=== PATIENT | female | born 1980 | race Caucasian/White ===

== ENCOUNTER → 2020-04-21 | Outpatient (CLI) | payer OTHER ==
[~2020-04-21] MED LIST: BUPR150T6 PO; FAMO20TA5 PO; FLUO40CA2 PO; HYOS0.1279 PO; LORA2ORA7 PO; ONDA4TAB12 PO; TRAZ-118 PO
[2020-04-21 12:12] LABS: BASO % 1 % (0-3); EOS % 0 % (0-3); HEMATOCRIT 39.3 % (36.0-47.0); HEMOGLOBIN 13.7 g/dL (12.0-15.5); LYMPH # 2.3 x10^3/uL (1.0-4.8); LYMPH % 27 % (24-48); MEAN CORPUSCULAR HEMOGLOBIN 32 pg (25-35); MEAN CORPUSCULAR HGB CONC 35 g/dL (31-37); MEAN CORPUSCULAR VOLUME 91 fL (79-100); MONO # 0.5 x10^3/uL (0.0-1.1); MONO % 6 % (0-9); NEUT # 5.8 x10^3/uL (1.8-7.7); NEUT % 67 % (31-73); PLATELET COUNT 371 x10^3/uL (140-400); RED CELL DISTRIBUTION WIDTH 13.6 % (11.5-14.5); WHITE BLOOD COUNT 8.7 x10^3/uL (4.0-11.0)
[2020-04-21 12:43] LABS: ALBUMIN 3.7 g/dL (3.4-5.0); ALBUMIN/GLOBULIN RATIO 1.1 (1.0-1.7); CALCIUM 8.9 mg/dL (8.5-10.1); CREATININE 0.9 mg/dL (0.6-1.0); TOTAL BILIRUBIN 0.4 mg/dL (0.2-1.0); TOTAL PROTEIN 7.2 g/dL (6.4-8.2)
--- NOTE | 2020-04-21 13:33 | EKG ---
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
--- NOTE | 2020-04-21 14:02 | RAD ---
Examination: XR CHEST 2V History: Reason: PRE OP. PARTIAL HYSTERECTOMY ON 04/26/2020 / [facility]. Instructions: / History: Comparison/Correlation: None Findings: Frontal and lateral views of the chest were obtained. Heart size and pulmonary vasculature are normal. No infiltrate or effusion. No pneumothorax. Bony structures are unremarkable. Impression: No active disease. Electronically signed by: Coy Sullivan MD (04/21/2020 2:00 PM) [id number]
== END ==
LOC: SURGPAT 11:28
PROVIDERS: ATTEND Obstetrics & Gynecology
DX: Z01.818 Encounter for other preprocedural examination (principal); Z72.0 Tobacco use
CPT/HCPCS: 36415; 71046; 80053; 85025; 93005

== ENCOUNTER 2020-04-26 06:10 | Observation (INO) | payer OTHER ==
[2020-04-26] VITALS (11 sets, daily range): BP systolic 107–133; BP diastolic 37–66
[~2020-04-26] VITALS: Ht 165.1 cm; Wt 64.5 kg
[~2020-04-26 06:10] MED LIST changes: +BUPIVACAINE-EPI 0.25%-1:200000 MPF 30 ML VIAL. INJ ONE
[2020-04-26] MEDS ORDERED: SCOPOLAMINE 1.5MG PATCH. TD ONE (06:30)
[2020-04-26] MEDS ORDERED: LIDOCAINE 2% PF 5 ML VIAL. ONE (06:49)
[2020-04-26] MEDS ORDERED: ROCURONIUM 50 MG/5 ML VIAL. ONE (06:49)
[2020-04-26] MEDS ORDERED: PROPOFOL 10 MG/ML (20ML) VIAL. IV ONE (06:49)
[2020-04-26] MEDS ORDERED: ESTROGENS, CONJ VAGINAL CREAM 30GM TUBE. ONE (06:59)
[2020-04-26] MEDS ORDERED: HYDROmorphone 2 MG/ML VIAL IV PRN (07:00)
[2020-04-26] MEDS ORDERED: INDIGOTINDISULFONATE SODIUM 40 MG/5 ML AMPUL. ONE (07:00)
[2020-04-26] MEDS ORDERED: MORPHINE SULFATE 2 MG/ML VIAL. IV PRN ×2 (07:00→10:00)
[2020-04-26] MEDS ORDERED: PROCHLORPERAZINE 10 MG/2 ML VIAL. IV PRN (07:00)
[2020-04-26] MEDS ORDERED: IV RINGERS,LACTATED 1000ML 1,000 ML IV SCH (07:00)
[2020-04-26] MEDS ORDERED: ONDANSETRON PF 4 MG/2 ML VIAL. IV PRN ×2 (07:00→10:00)
[2020-04-26] MEDS ORDERED: LIDOCAINE 1% PF 2 ML VIAL. ID PRN (07:00)
[2020-04-26] MEDS ORDERED: fentaNYL PF VIAL 100 MCG/2 ML VIAL IV PRN ×2 (07:00)
[2020-04-26] MEDS ORDERED: MIDAZOLAM HCL/PF 2 MG/2 ML VIAL. ONE (07:25)
[2020-04-26] MEDS ORDERED: SEVOFLURANE > 120 MINUTES. IH ONE (08:09)
[2020-04-26] MEDS ORDERED: ONDANSETRON PF 4 MG/2 ML VIAL. ONE (08:10)
[2020-04-26] MEDS ORDERED: DEXAMETHASONE SOD PHOS 4 MG/ML VIAL ONE (08:10)
[2020-04-26] MEDS ORDERED: KETOROLAC 30 MG/ML VIAL. ONE (08:10)
[2020-04-26] MEDS ORDERED: HYDROmorphone 2 MG/ML VIAL ONE (08:18)
[2020-04-26] MEDS ORDERED: GLYCOPYRROLATE 1 MG/5 ML VIAL. ONE (09:15)
[2020-04-26] MEDS ORDERED: NEOSTIGMINE METHYLSULFATE 5 MG/5 ML SYRINGE. ONE (09:15)
--- NOTE | 2020-04-26 09:47 | PDOC ---
BRIEF OPERATIVE NOTE Date: Apr 26, 2020 Pre-Op Diagnosis menorrhagia, dysmenorrhea, pelvic pain Post-Op Diagnosis same Procedure Performed LAVH/LSO/right salpingectomy Surgeon Dr. Lary Shoemaker Bin Worker Emerson MCDONNELL Anesthesiologist Dr. Lambert Anesthesia Type: General Blood Loss 25cc IV Fluid 1200cc Urine Output 150cc clear via walker Specimens Obtained cervix, uterus, left tube and ovary, right tube Findings RV uterus, tubes with clips, mild left sided adhesions; normal ovaries b ilaterally Complications none Operative Note [id number] LARY SHOEMAKER MD Apr 26, 2020 09:46
[2020-04-26] MEDS ORDERED: fentaNYL PF VIAL 100 MCG/2 ML VIAL ONE (09:51)
[2020-04-26] MEDS ORDERED: CALCIUM CARBONATE 500 MG TAB.CHEW PO PRN (10:00)
[2020-04-26] MEDS ORDERED: diphenhydrAMINE HCL 25 MG CAPSULE PO PRN (10:00)
[2020-04-26] MEDS ORDERED: NALOXONE 0.4 MG/ML VIAL. IV PRN (10:00)
[2020-04-26] MEDS ORDERED: ZOLPIDEM 5 MG TABLET. PO PRN (10:00)
[2020-04-26] MEDS ORDERED: HYDROcodone/APAP 5/325MG 1 TAB TABLET PO PRN (10:00)
[2020-04-26] MEDS ORDERED: LACTULOSE 20 GM/30 ML SOLUTION. PO PRN (10:00)
[2020-04-26] MEDS ORDERED: diphenhydrAMINE 50 MG/ML VIAL IV PRN (10:00)
[2020-04-26] MEDS ORDERED: 0.9 % SODIUM CHLORIDE 10 ML DISP.SYRIN. IV PRN (10:00)
[2020-04-26] MEDS ORDERED: MAG HYDROX/ALUMINUM HYD/SIMETH 30 ML ORAL.SUSP PO PRN (10:00)
[2020-04-26] MEDS ORDERED: MAGNESIUM HYDROXIDE 2,400 MG/30 ML ORAL.SUSP. PO PRN (10:00)
[2020-04-26] MEDS ORDERED: SIMETHICONE 80 MG TAB.CHEW PO PRN (10:00)
--- NOTE | 2020-04-26 11:23 | OP ---
DATE OF SURGERY: 04/26/2020 PREOPERATIVE DIAGNOSES: Menorrhagia, dysmenorrhea, pelvic pain; especially left-sided. POSTOPERATIVE DIAGNOSES: Menorrhagia, dysmenorrhea, pelvic pain; especially left-sided. PROCEDURES: Laparoscopic-assisted vaginal hysterectomy, left salpingo-oophorectomy, right salpingectomy. SURGEON: Carol Shoemaker MD DATA RECOVERY PLANNER: OR personnel. assistant director of public works was I believe his name is KECIA Norman; he is a traveling FA. ANESTHESIOLOGIST: Zeeshan Lambert MD ANESTHESIA: General. URINE OUTPUT: 150 mL, clear via Wilson catheter. BLOOD LOSS: 25 mL. INTRAVENOUS FLUIDS: 1200 mL of Crystalloid. SPECIMENS: Cervix, uterus, left tube and ovary, right tube. FINDINGS: Grossly normal abdomen; she did have some mild left-sided bowel adhesions, normal right upper quadrant, appendix was gone, retroverted uterus, tubes with evidence of clips from prior tubal ligation, normal bilateral ovaries. COMPLICATIONS: None. DESCRIPTION OF PROCEDURE: This patient was taken to the operating room where general anesthesia was placed. The patient was placed in dorsal lithotomy position in [facility]. The patient's abdomen and vagina were both prepped and draped in the normal sterile fashion and a Wilson catheter had been inserted under sterile technique. Upon my arrival, a timeout was performed. Once everyone agreed on the patient, the site, the procedure, the antibiotics, the procedure was initiated. A bivalve speculum was placed in the patient's vagina. A single-tooth tenaculum was used to grasp the anterior lip of the cervix. A 10 mL of 0.25% Marcaine with epinephrine was used to circumferentially inject around the cervix for both hemodissection and hemostatic purposes later. The Valtchev uterine manipulator was placed through the endocervical os, locked on the single-tooth tenaculum and the bivalve speculum was then removed. Top gloves were discarded and changed. Attention was turned to the abdomen where a small infraumbilical skin incision was made over the existing scar. A curved Chelsi was used to dissect through the subcuticular layer to the fascia. The 5-mm Visiport was used directly into the abdominal cavity. Opening patient pressure was 2-3 mmHg. Carbon dioxide gas was used to appropriately insufflate the abdominal cavity to maintain a pressure of 15 mmHg. The patient was placed in Trendelenburg position. Right and left lower quadrant ports were placed after transilluminating the abdominal wall, finding an area clear of any vasculature and placing the 5-mm disposable trocar under direct visualization. A 4-5 mL of air replaced in the trocar cuff. The camera was moved laterally to look at the umbilical port. Once it was assured to be in and clear, it was also insufflated the trocar cuff. The left tube and ovary were elevated, finding the ureter, coursing low in the pelvis, staying high on the infundibulopelvic ligament, taking the left tube and ovary per the patient request, cauterizing and cutting with the LigaSure, going over, going through the left round ligament as well and then down anteriorly just a little bit to start the bladder flap. On the right side, the right tube and ovary were elevated. Again, both tubes had evidence of Filshie clips that appeared. The right tube and ovary were elevated. Again, the ureter was seen coursing in the mid-to-low pelvis, but she wished to retain this ovary as it looked normal, so going above the ovary, below the tube, cauterizing and cutting, doing a salpingectomy, then crossing the right uterine-ovarian pedicle and the right round ligament, cauterizing and cutting with the LigaSure each way. Once this was done, the uterus was pushed cephalad. The Maryland was used to elevate the bladder flap and the monopolar hook was used to cauterize across the bladder flap and it was easily peeled down gently with the Maryland. Once this was done, going back to the left side, getting the uterines and staying inside that pedicle through the cardinal and broad ligaments, cauterizing and cutting with the LigaSure down to the level of the uterosacral. Posteriorly, everything was completely clear and free, so the right side once the right round ligament was obtained getting the right uterine vessels as well and then staying inside that pedicle hugging and going posteriorly through the cardinal and broad ligaments down to the uterosacral on this side as well. The uterus was completely free and blanched, we were low, there was no bleeding whatsoever. So, everything was removed from the abdomen and attention was turned vaginally. The overhead lights were turned on. The patient was taken out of steep Trendelenburg. The single tooth and Valtchev were removed. A weighted speculum was placed in the patient's vagina. Thyroid Umm clamps were placed on the anterior and posterior lips of the cervix respectively. A scalpel was used to make a circumferential incision in the cervix. The posterior cul-de-sac was sharply entered with curved Padilla scissors. A #0 Vicryl stitch was used to secure the posterior peritoneum here to the vaginal cuff, tagged with a curved Chelsi clamp. Needle was cut and passed off. Short-weighted speculum was removed and replaced with the long-weighted Nanda speculum in the posterior cul-de-sac. The bladder flap anteriorly was created sharply by gently just pushing it up and using the scalpel to peel it off the cervix and then using the open Ray-Ray 4 x 4 to gently push it up and the anterior cul-de-sac was easily digitally and bluntly entered. The curved Shandra was placed in here and the Ray-Ray was then passed off to the bottom table. Curved Elva clamps x 2 were placed on the patient's left uterosacral ligament where they were doubly clamped with curved Heaneys, cut with curved Padilla scissors and suture ligated x 2 with 0 Vicryl. Second one was taken through the vaginal cuff securing uterosacral ligament to the vaginal cuff and tagging it with a straight Chelsi clamp and cutting and passing the needle off. This was done exactly the same that I started on left on the right side. Double clamp in the uterosacrals with curved Elva's, cutting with curved Padilla scissors, suture ligating x 2 with 0 Vicryl, taking the second one through the vaginal cuff securing uterosacral ligament to the vaginal cuff, tagging it with a straight Chelsi clamp and cutting the needle off. The patient's right side was completely free and wanted to come out. There was a very small thread of peritoneum holding in the uterus on the left, but the right angle clamp was placed around that. The vaginal LigaSure was used to cauterize and cut this. The cervix, uterus, left tube and ovary, right tube were delivered in total and passed off for permanent pathology. A sponge stick was used to examine all the pedicles. The anterior bladder peritoneum was grasped with a long Allis. The long speculum Nanda was removed from the posterior cul-de-sac and replaced with the short-weighted vaginal speculum in the vagina. A 2-0 Vicryl was taken through the anterior bladder peritoneum, left uterosacral ligament, posterior peritoneum and right uterosacral ligament, thus closing the peritoneum in a pursestring-like fashion. The right and left uterosacral tags were clipped. A full length 2-0 Vicryl was used to close the cuff in an [id number]-st-ifforogrd running locked fashion, locking the sutures. About three-quarters of the way down, the needle was then pulled off. I got another one, put as the suture in right above it, tied it, and then kept going down and tied to the posterior cuff tag. The vaginal cuff looked excellent; that was completely hemostatic, no bleeding. So, all instruments were counted x 2 below by OR personnel and were correct. So, all gloves were discarded and changed and attention was turned back above for a second look. The patient was placed back in Trendelenburg. Overhead lights were redimmed. Gas was reinsufflated. Copious irrigation revealed hemostasis. There was some very mild, maybe a tiny bit of oozing at the right side on the cuff. This was cauterized right on the cuff edge, underneath on the right side with the LigaSure. Copious irrigation then did reveal hemostasis plus Tisseel was placed over all the cuff with excellent results. The right and left lower quadrant ports were deflated, the cuffs were and removed under direct visualization. They were hemostatic. The cuff remained hemostatic with absolutely nothing in the cul-de-sac. Gas was taken out of the trocar cuff of the umbilical port and the gas was released from the abdomen through this. Once it was out, it was removed. All 3 port sites were closed. There was some slight bleeding from the left trocar site, so a Monocryl was placed below it to stop the bleeding, which worked great and then nylon was used on all three. Then, they were injected with local at the end of closing all three with nylon. Again, all sponge, lap and needle counts were correct x 2 by the OR personnel. The patient was awakened from anesthesia and brought to recovery room in stable condition. CAROL SHOEMAKER MD DR: NANDO/yazan JOB#: [id number] / [id number]
[2020-04-26] MEDS: oxyCODONE/APAP 5/325 1 TAB TABLET PO PRN ×2 (13:37→22:06)
[2020-04-26] MEDS ORDERED: LORazepam 0.5 MG TABLET PO ONE (21:00)
[2020-04-26] MEDS ORDERED: FLUoxetine HCL 20 MG CAPSULE PO SCH (21:00)
[2020-04-27 02:15] VITALS: BP 124/78
[2020-04-27 05:46] VITALS: BP 121/68
--- NOTE | 2020-04-27 08:55 | PDOC ---
SURGICAL PROGRESS NOTE DATE: 04/27/20 TIME: 08:51 Subjective Doing well without complaints. Voiding without catheter, tolerating regular diet without n/v' ambulating well and scant VB Vital Signs Vital Signs Date Time Temp Pulse Resp B/P (MAP) Pulse Ox O2 Delivery O2 Flow Rate FiO2 04/27/20 05:46 98.6 60 18 121/68 (85) 97 Room Air 98.6 04/26/20 10:10 6 I&O Intake and Output 04/27/20 07:00 Intake Total 1350 ml Output Total 550 ml Balance 800 ml Intake IV Total 1350 ml Output Urine Total 525 ml Estimated Blood Loss 25 ml # Voids 2 PATIENT HAS A BATES: No General: Alert, Oriented X3, Cooperative, No acute distress HEENT: Atraumatic Heart: Regular rate Abdomen: Soft, Other (appropriate tenderness. all port sites c/d/i) Extremities: No clubbing, No cyanosis, No edema, No tenderness/swelling Skin: No rashes, No breakdown Neuro: Normal speech Psych/Mental Status: Mental status NL, Mood NL Labs Laboratory Tests Test 04/26/20 06:29 Bedside Urine HCG, Qualitative Hcg negative (Negative) I have reviewed the following labs, vitals, nursing Assessment/Plan POD#1 s/p LAVH/LSO/right salpingectomy Routine PO care d/c to home later today if labs ok (not drawn yet this am) NPV x 6 weeks light/limited x 2 weeks keep one week follow up with me as scheduled\ already has pain pills filled at home ok for OTC ibuprofen as needed also Call or return sooner for any other questions or concerns not limited to but including pain unrelieved with pain meds, increased or unexplained vaginal bleeding or T.100.4 Justicifation of Admission Dx: Justifications for Admission: Justification of Admission Dx: Yes (postoperative) CAROL ESTRADA MD Apr 27, 2020 08:55
--- NOTE | 2020-04-27 08:58 | PDOC3 ---
Discharge Summary Visit Information Date of Admission: Apr 26, 2020 Date of Discharge: Apr 27, 2020 Admitting Diagnosis Comment: pelvic pain, menorrhagia Brief Hospital Course Allergies Allergies Coded Allergies Type Severity Reaction Last Updated Verified Influenza Virus Vaccines Allergy Mild 04/27/20 Yes codeine Allergy Mild Nausea and Vomiting 04/27/20 Yes dicyclomine Allergy Mild 04/27/20 Yes Vital Signs Vital Signs Date Time Temp Pulse Resp B/P (MAP) Pulse Ox O2 Delivery O2 Flow Rate FiO2 04/27/20 05:46 98.6 60 18 121/68 (85) 97 Room Air 98.6 04/26/20 10:10 6 Lab Results Laboratory Tests Test 04/26/20 06:29 Bedside Urine HCG, Qualitative Hcg negative (Negative) Brief Hospital Course Ms. Jacobo is a 40 old female who presented with left sided pelvic pain, menorrhagia and dysmenorrhea. She underwent an LAVH/LSO/ right salpingectomy yesterday without complications. She has had an unremarkable postoperative course. She is AFVSS, ambulating well, voiding without catheter, tolerating regular diet without n/v and scant VB. She desires to go home, just awaiting am labs Assessment Assessment POD#1 s/p LAVH/LSO/right salpingectomy Routine PO care d/c to home later today if labs ok (not drawn yet this am) NPV x 6 weeks light/limited x 2 weeks keep one week follow up with me as scheduled\ already has pain pills filled at home ok for OTC ibuprofen as needed also Call or return sooner for any other questions or concerns not limited to but including pain unrelieved with pain meds, increased or unexplained vaginal bleeding or T.100.4 Discharge Information Condition at Discharge: Stable Follow Up: Weeks Disposition/Orders: D/C to Home Scheduled Bupropion Hcl (Bupropion Xl) 150 Mg Tab.er.24h, 1 TAB PO DAILYWBKFT for depression, #30 Ref 2 (Reported) Entered as Reported by: ITZEL LOPEZ on 04/21/20 121 Last Taken: Unknown Dose on 04/26/20514 Last Action: Last Taken Edited on 04/26/20627 by BERTHA CORREA Famotidine (Famotidine) 20 Mg Tablet, 20 MG PO DAILY08 for dyspepsia, (Reported) Entered as Reported by: ITZEL LOPEZ on 04/21/20 121 Last Taken: Unknown Dose on 04/25/20 Last Action: Last Taken Edited on 04/26/20627 by BERTHA CORREA Fluoxetine Hcl (Fluoxetine Hcl) 40 Mg Capsule, 1 CAP PO HS for depression, #30 Ref 2 (Reported) Entered as Reported by: ITZEL LOPEZ on 04/21/201208 Last Taken: Unknown Dose on 04/25/20 Last Action: Last Taken Edited on 04/26/20627 by BERTHA CORREA Trazodone Hcl (Trazodone Hcl) 50 Mg Tablet, 1 TAB PO QHS for insomnia, #30 Ref 1 (Reported) Entered as Reported by: ITZEL LOPEZ on 04/21/201206 Last Taken: Unknown Dose on 04/25/20 Last Action: Last Taken Edited on 04/26/20627 by BERTHA CORREA Scheduled PRN Hyoscyamine Sulfate (Hyoscyamine Sulfate) 0.125 Mg Tablet, 1 TAB PO PRN QID PRN for DYSPEPSIA for 30 Days, Ref 0 (Reported) Entered as Reported by: ITZEL LOPEZ on 04/21/201208 Last Taken: Unknown Dose on 04/25/20 Last Action: Last Taken Edited on 04/26/20627 by BERTHA CORREA Lorazepam (Lorazepam Intensol ) 2 Mg/1 Ml Oral.conc, 1 MG PO BID PRN for ANXIETY / AGITATION, (Reported) Entered as Reported by: ITZEL LOPEZ on 04/21/201207 Last Taken: Unknown Dose on 04/26/20 0515 Last Action: Last Taken Edited on 04/26/20627 by BERTHA CORREA Ondansetron (Ondansetron Odt) 4 Mg Tab.rapdis, 8 MG PO BID PRN for NAUSEA/VOMITING, (Reported) Entered as Reported by: ITZEL LOPEZ on 04/21/201209 Last Taken: Unknown Dose on 04/25/20 Last Action: Last Taken Edited on 04/26/20627 by BERTHA CORREA Patient Instructions Patient Instructions POD#1 s/p LAVH/LSO/right salpingectomy Routine PO care d/c to home later today if labs ok (not drawn yet this am) NPV x 6 weeks light/limited x 2 weeks keep one week follow up with me as scheduled\ already has pain pills filled at home ok for OTC ibuprofen as needed also Call or return sooner for any other questions or concerns not limited to but including pain unrelieved with pain meds, increased or unexplained vaginal bleeding or T.100.4 Justicifation of Admission Dx: Justifications for Admission: Justification of Admission Dx: Yes (postoperative) CAROL ESTRADA MD Apr 27, 2020 08:58
[2020-04-27] MEDS: oxyCODONE/APAP 5/325 1 TAB TABLET PO PRN (09:14)
[2020-04-27 11:49] LABS: CALCIUM 8.4 mg/dL (8.5-10.1); GFR 61.1; POTASSIUM 3.3 mmol/L (3.5-5.1)
[2020-04-27 13:00] VITALS: BP 112/61
--- NOTE | 2020-04-27 13:06 | NUR ---
Discharge Discharge instructions given to patient and at this time, no questions or concerns. To follow up with DR Shoemaker in 2 weeks. Patient ambulated off unit with all her belongings.
--- NOTE | 2020-05-02 22:19 | PATHOLOGY ---
[facility] Accession Number: [id number] . 01 Material submitted: . uterus - CERVIX, UTERUS, LEFT TUBE AND OVARY, RIGHT TUBE . 01 Clinical history: . MENORRHAGIA . 02 Diagnosis: Uterus with attached bilateral fallopian tubes and left ovary, hysterectomy with bilateral salpingectomy and left oophorectomy: - Chronic cervicitis with focal squamous metaplasia. - Few small nabothian cysts, cervix. - Status post endometrial ablation with small stellate and fibrotic endometrial cavity. - Benign simple serous cyst of myometrium of left cornual region. - Status post bilateral tubal ligation with segmental hydrosalpinx of left fallopian tube. - Small left paratubal cysts. - Small serous cyst and focally hemorrhagic regressing luteum of left ovary. . LBQ 05/02/2020 2103 Local . 02 Comment: There is no atypia or evidence of malignancy. (JPM/db; 04/28/2020) . . This case was prepared and proofread by Dr. Lam Sanches and electronically released by Dr. Andreina Cottrell. . 02 Electronically signed: . Andreina Cottrell MD, Pathologist NPI- [id number] . 01 Gross description: . Received in formalin labeled "Kiet Jacoboa, cervix, uterus, left tube and ovary, right tube" is a previously opened hysterectomy specimen with attached left fallopian tube and ovary and right fallopian tube. The uterus weighs 60 g and measures 7.8 cm from fundus to cervix, 5.0 cm from cornu to cornu, and 3.8 cm from anterior to posterior. The serosa is pink-taylor and smooth. The ectocervix is pink-taylor and glistening with a slitlike cervical os measuring 2.1 cm. The uterus is opened to reveal a 2.6 x 1.2 cm endocervical canal and a 2.0 x 0.6 cm stellate and fibrotic endometrial cavity, possibly consistent with previous ablation procedure. The average endometrial thickness is less than 0.1 cm and the average myometrial thickness is 1.4 cm. A simple cyst is present within the myometrium at the left cornu, measuring 0.8 cm in greatest dimension. The cyst contains clear watery fluid. The right fallopian tube measures 6.5 x 0.8 cm and the left fallopian tube measures 6.7 cm in length and ranges from 0.8-1.5 cm in diameter. The right fallopian tube displays a metallic clamp at the proximal aspect, consistent with sterilization procedure. The left fallopian tube displays two metallic clamps, located in the proximal and mid tube, with the segment of fallopian tube between the clamps being dilated and filled with clear watery fluid. The remaining fallopian tube surfaces are smooth and red-purple, and the fallopian tubes are sectioned to reveal otherwise unremarkable lumens. The left ovary weighs 4 g and measures 2.3 x 1.5 x 1.2 cm. The ovary has a taylor-white cerebriform external surface and is sectioned to reveal taylor-white unremarkable cut surfaces. . Feed Mill Manager sections are submitted as follows A1 12:00 cervix A2 6:00 cervix A3 anterior endomyometrium A4 posterior endomyometrium A5 right fallopian tube A6-A7 left fallopian tube A8 left ovary A9 uterine cyst [place] . After initial microscopic examination, additional novelties sales representative sections are submitted as follows: . A10 anterior endomyometrium A11 posterior endomyometrium. ([facility]; 04/28/2020) [facility] 04/28/2020 1746 Local . 02 Pathologist provided ICD-10: N72, N88.8, N83.202, N83.8 . 02 CPT . 282012 Specimen Comment: A courtesy copy of this report has been sent to [phone], [phone] Specimen Comment: [id number] Specimen Comment: Report sent to / DR WOODS Performed at: [address], [place], [place] [address] MD Hamilton Arevalo MD Phone: [phone] Performed at: 02 [facility] [address] [place], [place] [id number] MD Lam Sanches MD Phone: [phone]
== END 2020-04-27 13:30 | disposition home or self-care (01) ==
LOC: SURG 06:10 → 3 NORTH 09:59 → EDUNIT# 10:30
PROVIDERS: ADMIT Obstetrics & Gynecology; ATTEND Obstetrics & Gynecology
DX: N92.0 Excessive and frequent menstruation with regular cycle (principal); N94.6 Dysmenorrhea, unspecified; R10.2 Pelvic and perineal pain
CPT/HCPCS: 36415; 58552; 80048; 81025; 85014; 86850; 86900; 86901; 88307; 96374; G0378; G0379; J0690; J0780; J1100; J1170; J1885; J2250; J2405; J2704; J2710; J3010; J3490; J7120

== ENCOUNTER 2020-10-07 22:29 | Emergency (ER) | payer BC, OTHER ==
[~2020-10-07] VITALS: Ht 167.6 cm; Wt 64.0 kg
[~2020-10-07 22:29] MED LIST changes: -BUPIVACAINE-EPI 0.25%-1:200000 MPF 30 ML VIAL. INJ ONE; +BUPR150T21 PO; -BUPR150T6 PO
[2020-10-07] MEDS ORDERED: DEXAMETHASONE SOD PHOS 4 MG/ML VIAL IVP ONE (23:45)
[2020-10-08 00:02] LABS: BASO # 0.2 x10^3/uL (0.0-0.2); BASO % 1 % (0-3); EOS # 0.2 x10^3/uL (0.0-0.7); EOS % 1 % (0-3); HEMATOCRIT 41.9 % (36.0-47.0); HEMOGLOBIN 14.1 g/dL (12.0-15.5); LYMPH % 21 % (24-48); MEAN CORPUSCULAR HEMOGLOBIN 31 pg (25-35); MEAN CORPUSCULAR HGB CONC 34 g/dL (31-37); MEAN CORPUSCULAR VOLUME 91 fL (79-100); MONO # 0.9 x10^3/uL (0.0-1.1); MONO % 6 % (0-9); NEUT # 10.5 x10^3/uL (1.8-7.7); NEUT % 71 % (31-73); PLATELET COUNT 420 x10^3/uL (140-400); RED BLOOD COUNT 4.61 x10^6/uL (3.50-5.40); RED CELL DISTRIBUTION WIDTH 13.4 % (11.5-14.5); WHITE BLOOD COUNT 14.7 x10^3/uL (4.0-11.0)
[2020-10-08 00:17] LABS: CALCIUM 9.6 mg/dL (8.5-10.1); CREATININE 0.9 mg/dL (0.6-1.0); POTASSIUM 3.9 mmol/L (3.5-5.1)
--- NOTE | 2020-10-08 00:17 | RAD ---
XR CHEST 1V Clinical History: Reason: cough, covid? / Spl. Instructions: / History: Technique: AP view of the chest was obtained at 10/07/2020 11:43 PM. Comparison: April 21, 2020. Findings: The heart is normal size. The pulmonary vessels appear normal. There is increased reticular opacities of the lungs. There is blunting of costophrenic angles. There is low lung volumes. Impression: Reticular opacities of lungs are nonspecific and can be chronic pulmonary fibrosis but can be atypica l pneumonia. This is somewhat exaggerated by low lung volumes. Clinical correlation is suggested. Electronically signed by: Jacek Bonilla III, MD (10/08/2020 12:15 AM) [facility]
[2020-10-08 00:23] LABS: ALBUMIN 3.8 g/dL (3.4-5.0); TOTAL BILIRUBIN 0.2 mg/dL (0.2-1.0); TOTAL PROTEIN 7.8 g/dL (6.4-8.2)
[2020-10-08] MEDS ORDERED: IPRATRPIUM/ALBUTEROL 0.5/2.5MG 3 ML NEBU. NEB ONE (00:30)
[2020-10-08 00:34] LABS: C-REACTIVE PROTEIN 62.2 mg/L (0-3.3)
--- NOTE | 2020-10-08 01:11 | ED.ADGEN ---
Past Medical History Past Medical History: Anxiety, IBS, Pneumonia Past Surgical History: Appendectomy, Cholecystectomy, Hysterectomy, Tubal lig ation Additional Past Surgical Histo: "SOME ADHESION REMOVAL" Smoking Status: Current Every Day Smoker Alcohol Use: Occasionally General Adult EDM: Chief Complaint: MULTIPLE COMPLAINTS HPI: HPI: Patient is a 40-year-old female presents to the emergency room complaining of cough, chest tightness, shortness of breath for the last several days. Patient states that a week ago she had developed a sore throat and the following day she had chest congestion and a mild cough. She states that initially the first couple of days it progressively got better. She states that then on 2 days prior to arrival she got significantly worse congestion. She states now if she tries to lay flat she has excessive coughing and cannot catch her breath. She no longer has any URI symptoms. She states that she is producing some mucus but states that it is not enough. She states that she cannot get all of the congestion up. She has been taking NyQuil, DayQuil, Mucinex at home without relief. She denies any fevers, chills, sweats, abdominal pain, nausea, vomiting, body aches. She does have some chest pain anytime she coughs but otherwise does not have any chest pain. She states that feels like an achy pain. Review of Systems: Review of Systems: Complete ROS is negative unless otherwise documented in HPI Current Medications: Current Medications Medications (Trade) Dose Ordered Sig/Zack Start Time Stop Time Status Last Admin Dose Admin Albuterol/ Ipratropium (Duoneb) 3 ml 1X ONCE 10/08/20 00:30 10/08/20 00:31 DC 10/08/20 00:59 3 ML Dexamethasone Sodium Phosphate (Decadron) 10 mg 1X ONCE 10/07/20 23:45 10/07/20 23:46 DC 10/08/20 00:16 10 MG Guaifenesin/ Codeine Phosphate (Robitussin Ac) 5 ml PRN 1X PRN 10/08/20 02:15 Ondansetron HCl (Zofran) 4 mg 1X ONCE 10/08/20 02:15 10/08/20 02:16 DC Allergies: Allergies: Allergies Coded Allergies Type Severity Reaction Last Updated Verified Influenza Virus Vaccines Adverse Reaction Mild 10/07/20 Yes codeine Adverse Reaction Mild Nausea and Vomiting 10/07/20 Yes dicyclomine Adverse Reaction Mild 10/07/20 Yes Physical Exam: PE: General: Awake, alert, NAD. Well Nourished, well hydrated. Cooperative HEENT: Atraumatic, EOMI, PERRL, airway patent, moist oral mucosa Neck: Supple, trachea midline Respiratory: Decreased breath sounds bilaterally, minimal crackles diffusely CV: RRR, no murmur, cap refill <2 GI: Soft, nondistended, nontender, no masses MSK: No obvious deformities Skin: Warm, dry, intact Neuro: A&O x3, speech NL, sensory and motor grossly intact, no focal deficits Psych: Normal affect, normal mood, not suicidal or homicidal Current Patient Data: Labs: Laboratory Tests Test 10/07/20 23:49 White Blood Count 14.7 x10^3/uL (4.0-11.0) H Red Blood Count 4.61 x10^6/uL (3.50-5.40) Hemoglobin 14.1 g/dL (12.0-15.5) Hematocrit 41.9 % (36.0-47.0) Mean Corpuscular Volume 91 fL (79-100) Mean Corpuscular Hemoglobin 31 pg (25-35) Mean Corpuscular Hemoglobin Concent 34 g/dL (31-37) Red Cell Distribution Width 13.4 % (11.5-14.5) Platelet Count 420 x10^3/uL (140-400) H Neutrophils (%) (Auto) 71 % (31-73) Lymphocytes (%) (Auto) 21 % (24-48) L Monocytes (%) (Auto) 6 % (0-9) Eosinophils (%) (Auto) 1 % (0-3) Basophils (%) (Auto) 1 % (0-3) Neutrophils # (Auto) 10.5 x10^3/uL (1.8-7.7) H Lymphocytes # (Auto) 3.0 x10^3/uL (1.0-4.8) Monocytes # (Auto) 0.9 x10^3/uL (0.0-1.1) Eosinophils # (Auto) 0.2 x10^3/uL (0.0-0.7) Basophils # (Auto) 0.2 x10^3/uL (0.0-0.2) Sodium Level 141 mmol/L (136-145) Potassium Level 3.9 mmol/L (3.5-5.1) Chloride Level 102 mmol/L (98-107) Carbon Dioxide Level 29 mmol/L (21-32) Anion Gap 10 (6-14) Blood Urea Nitrogen 12 mg/dL (7-20) Creatinine 0.9 mg/dL (0.6-1.0) Estimated GFR (Cockcroft-Gault) 69.0 BUN/Creatinine Ratio 13 (6-20) Glucose Level 101 mg/dL (70-99) H Calcium Level 9.6 mg/dL (8.5-10.1) Total Bilirubin 0.2 mg/dL (0.2-1.0) Aspartate Amino Transferase (AST) 22 U/L (15-37) Alanine Aminotransferase (ALT) 42 U/L (14-59) Alkaline Phosphatase 117 U/L (46-116) H Lactate Dehydrogenase 228 U/L (81-234) Creatine Kinase 86 U/L (26-192) Troponin I Quantitative < 0.017 ng/mL (0.000-0.055) C-Reactive Protein, Quantitative 62.2 mg/L (0-3.3) H PC-Uhm-U-Type Natriuretic Peptide 148 pg/mL (0-124) H Total Protein 7.8 g/dL (6.4-8.2) Albumin 3.8 g/dL (3.4-5.0) Albumin/Globulin Ratio 1.0 (1.0-1.7) Laboratory Tests 10/07/20 23:49 Laboratory Tests 10/07/20 23:49 Vital Signs: Vital Signs Date Time Temp Pulse Resp B/P (MAP) Pulse Ox O2 Delivery O2 Flow Rate FiO2 10/08/20 01:00 98 Room Air 10/08/20 00:13 82 136/75 (95) 10/07/20 22:54 98.4 16 98.4 EKG: EKG: [] Heart Score: C/O Chest Pain: N/A Risk Factors: Risk Factors: DM, Current or recent (<one month) smoker, HTN, HLP, family history of CAD, obesity. Risk Scores: Score 0 - 3: 2.5% MACE over next 6 weeks - Discharge Home Score 4 - 6: 20.3% MACE over next 6 weeks - Admit for Clinical Observation Score 7 - 10: 72.7% MACE over next 6 weeks - Early Invasive Strategies Radiology/Procedures: Radiology/Procedures: [] Course & Med Decision Making: Course & Med Decision Making Pertinent Labs and Imaging studies reviewed. (See chart for details) Patient is a 40-year-old female who presents to the emergency room with cough, shortness of breath, chest tightness. Patient has had one of her Covid vaccines but is not fully vaccinated. It is possible that she could have novel coronavirus 19. She does have decreased breath sounds bilaterally. She does have some minimal crackles. Work-up was ordered to risk stratify the patient for possible novel coronavirus 19 as well as to evaluate for pneumonia or other signs of infection. Patient is not tachycardic or hypoxic. Pulmonary embolism is highly unlikely at this time. She will be given steroids and a DuoNeb treatment. Chest x-ray shows possible atypical pneumonia. This could be COVID- 19. I have discussed this with the patient. We will place her on azithromycin for atypical pneumonia along with steroids, Tessalon, inhaler. Patient is not h ypoxic or febrile at this time. She does not have any significant shortness of breath. We have discussed symptoms and signs when she should come back to the emergency room. Patient's test results and vitals while in the ED were fully reviewed and discussed with the patient. Patient is stable and at this time does not need admission to the hospital. We have discussed strict return precautions and the importance of following up with their Primary Care Physician. Patient stated understanding and was given an opportunity to ask any questions. Patient is in agreement with plan. Wes Disclaimer: Wes Disclaimer: This electronic medical record was generated, in whole or in part, using a voice recognition dictation system. Departure Departure Impression: Primary Impression: Atypical pneumonia Disposition: HOME / SELF CARE / HOMELESS Condition: STABLE Referrals: MARTIN WOODS DO (PCP) Patient Instructions: Pneumonia, Adult Scripts Albuterol Sulfate (VENTOLIN HFA INHALER) 18 Gm Hfa.aer.ad 2 PUFF INH QID for FOR ASTHMA, #1 INHALER 0 Refills Prov: ANCELMO MEDINA MD 10/08/20 Benzonatate (TESSALON PERLE) 100 Mg Capsule 100 MG PO TID PRN for COUGH, #30 CAP Prov: ANCELMO MEDINA MD 10/08/20 Azithromycin (ZITHROMAX) 250 Mg Tablet 1 PKG PO UD, #6 TAB Prov: ANCELMO MEDINA MD 10/08/20 Prednisone (PREDNISONE) 50 Mg Tablet 1 TAB PO DAILY, #5 TAB Prov: ANCELMO MEDINA MD 10/08/20 ANCELMO MEDINA MD October 08, 2020 01:11
[2020-10-08 02:13] VITALS: BP 127/69
[2020-10-08] MEDS ORDERED: guaiFENesin/CODEINE 100mg/10mg 5 ML LIQUID PO PRN (02:15)
[2020-10-08] MEDS ORDERED: ONDANSETRON PF 4 MG/2 ML VIAL. IVP ONE (02:15)
[2020-10-08] MEDS ORDERED: AZIT250T PO (02:26)
[2020-10-08] MEDS ORDERED: BENZ100C PO (02:26)
[2020-10-08] MEDS ORDERED: PRED50TA PO (02:26)
[2020-10-08] MEDS ORDERED: VENTOLIN HFA18 GM INH (02:26)
--- NOTE | 2020-10-08 05:31 | EKG ---
[facility] [address] [place] [address] Test Date: 2020-10-07 Test Time: 23:50:46 Pat Name: JARRED YIN Department: Room: Gender: F [place] Guide: NANCY : 1980 Requested By: ANCELMO MEDINA Order Number: [id number] Reading MD: Measurements Intervals Wheeler Rate: 88 P: 25 CA: 134 QRS: 44 QRSD: 94 T: 10 QT: 368 QTc: 449 Interpretive Statements SINUS RHYTHM NORMAL ECG RI6.02 No previous ECG available for comparison
== END 2020-10-08 02:45 | disposition home or self-care (01) ==
LOC: ER 22:29
DX: J18.9 Pneumonia, unspecified organism (principal); Z20.822 Contact with and (suspected) exposure to COVID-19; K58.9 Irritable bowel syndrome, unspecified; F17.200 Nicotine dependence, unspecified, uncomplicated; Z88.5 Allergy status to narcotic agent; Z88.7 Allergy status to serum and vaccine; Z88.8 Allergy status to other drugs, medicaments and biological substances
CPT/HCPCS: 36415; 71045; 80053; 82550; 83615; 83880; 84484; 85025; 86140; 93005; 94640; 96374; 96375; 99285; J1100; J2405; U0003; U0005

== ENCOUNTER 2020-10-30 14:03 | Emergency (ER) | payer BC ==
[~2020-10-30] VITALS: Ht 165.1 cm; Wt 78.2 kg
[~2020-10-30 14:03] MED LIST changes: +AZIT250T PO; +BENZ100C PO; +PRED50TA PO; +VENTOLIN HFA18 GM INH
[2020-10-30 14:48] VITALS: BP 121/68
--- NOTE | 2020-10-30 16:18 | RAD ---
PA and lateral chest. HISTORY: Rib pain PA and lateral views were taken of the chest. There is no pneumothorax or pleural effusion. Heart is normal in size. There are no acute infiltrates. IMPRESSION: 1. No acute chest disease. Electronically signed by: Matt Santo MD (10/30/2020 4:15 PM) [facility]
[2020-10-30] MEDS ORDERED: LIDOCAINE (700MG/PATCH) PATCH. TD ONE (16:30)
[2020-10-30] MEDS ORDERED: METHOCARBAMOL 750 MG TABLET PO ONE (16:30)
[2020-10-30] MEDS ORDERED: KETOROLAC 60 MG/2 ML VIAL. IM ONE (16:30)
[2020-10-30] MEDS ORDERED: METH-561 PO (16:33)
[2020-10-30] MEDS ORDERED: METH4TAB2 PO (16:33)
--- NOTE | 2020-10-30 16:33 | ED.ADGEN ---
Past Medical History Past Medical History: Pneumonia Past Surgical History: Appendectomy, Cholecystectomy, Hysterectomy Additional Past Surgical Histo: "SOME ADHESION REMOVAL" Smoking Status: Current Every Day Smoker Alcohol Use: None General Adult EDM: Chief Complaint: RIB PAIN HPI: HPI: Patient is a 40 year old [f__sex] who presents with [] Review of Systems: Review of Systems: Constitutional: Denies fever or chills. [] Eyes: Denies change in visual acuity. [] HENT: Denies nasal congestion or sore throat. [] Respiratory: Denies cough or shortness of breath. [] Cardiovascular: Denies chest pain or edema. [] GI: Denies abdominal pain, nausea, vomiting, bloody stools or diarrhea. [] : Denies dysuria. [] Musculoskeletal: Denies back pain or joint pain. [] Integument: Denies rash. [] Neurologic: Denies headache, focal weakness or sensory changes. [] Endocrine: Denies polyuria or polydipsia. [] Lymphatic: Denies swollen glands. [] Psychiatric: Denies depression or anxiety. [] Allergies: Allergies: Allergies Coded Allergies Type Severity Reaction Last Updated Verified Influenza Virus Vaccines Adverse Reaction Mild 10/07/20 Yes codeine Adverse Reaction Mild Nausea and Vomiting 10/07/20 Yes dicyclomine Adverse Reaction Mild 10/07/20 Yes Physical Exam: PE: Constitutional: Well developed, well nourished, no acute distress, non-toxic appearance. [] HENT: Normocephalic, atraumatic, bilateral external ears normal, oropharynx moist, no oral exudates, nose normal. [] Eyes: PERRLA, EOMI, conjunctiva normal, no discharge. [] Neck: Normal range of motion, no tenderness, supple, no stridor. [] Cardiovascular:Heart rate regular rhythm, no murmur [] Lungs & Thorax: Bilateral breath sounds clear to auscultation [] Abdomen: Bowel sounds normal, soft, no tenderness, no masses, no pulsatile masses. [] Skin: Warm, dry, no erythema, no rash. [] Back: No tenderness, no CVA tenderness. [] Extremities: No tenderness, no cyanosis, no clubbing, ROM intact, no edema. [] Neurologic: Alert and oriented X 3, normal motor function, normal sensory function, no focal deficits noted. [] Psychologic: Affect normal, judgement normal, mood normal. [] Current Patient Data: Vital Signs: Vital Signs Date Time Temp Pulse Resp B/P (MAP) Pulse Ox O2 Delivery O2 Flow Rate FiO2 10/30/20 14:48 98.4 74 16 121/68 (85) 99 Room Air 98.4 EKG: EKG: [] Heart Score: Risk Factors: Risk Factors: DM, Current or recent (<one month) smoker, HTN, HLP, family history of CAD, obesity. Risk Scores: Score 0 - 3: 2.5% MACE over next 6 weeks - Discharge Home Score 4 - 6: 20.3% MACE over next 6 weeks - Admit for Clinical Observation Score 7 - 10: 72.7% MACE over next 6 weeks - Early Invasive Strategies Radiology/Procedures: Radiology/Procedures: [] Course & Med Decision Making: Course & Med Decision Making Pertinent Labs and Imaging studies reviewed. (See chart for details) [] Dragon Disclaimer: Dragon Disclaimer: This electronic medical record was generated, in whole or in part, using a voice recognition dictation system. Departure Departure Impression: Primary Impression: Rib sprain Disposition: HOME / SELF CARE / HOMELESS Condition: STABLE Referrals: MARTIN WOODS DO (PCP) Patient Instructions: Rib Contusion Scripts Methylprednisolone (MEDROL) 4 Mg Tab.ds.pk 1 PKG PO UD for inflammation, #1 PKG Prov: ANCELMO MEDINA MD 10/30/20 Methocarbamol (METHOCARBAMOL) 500 Mg Tablet 500 MG PO QID PRN for MUSCLE PAIN for 5 Days, #20 TAB Prov: ANCLEMO MEDINA MD 10/30/20 ANCELMO MEDINA MD Oct 30, 2020 16:33
== END 2020-10-30 17:00 | disposition home or self-care (01) ==
LOC: ER 14:03
DX: S23.41XA Sprain of ribs, initial encounter (principal); Z88.5 Allergy status to narcotic agent; Z88.7 Allergy status to serum and vaccine; Z88.8 Allergy status to other drugs, medicaments and biological substances; X50.9XXA Other and unspecified overexertion or strenuous movements or postures, initial encounter; Y93.89 Activity, other specified; Y92.89 Other specified places as the place of occurrence of the external cause; Y99.8 Other external cause status
CPT/HCPCS: 71046; 99284; J1885